=== PATIENT | female | born 1950 | race American Indian/Alaskan Native ===

== ENCOUNTER → 2017-03-19 | Outpatient (CLI) | payer BC ==
--- NOTE | 2017-03-20 08:47 | MM ---
Reason for exam: screening (asymptomatic). Last mammogram was performed 2 years and 3 months ago. History: Patient is postmenopausal. Physical Findings: A clinical breast exam by your physician is recommended on an annual basis and results should be correlated with mammographic findings. MG Screening Mammo w CAD Bilateral CC and MLO view(s) were taken. Prior study comparison: December 15, 2014, bilateral MG screening mammo w CAD. October 26, 2013, bilateral digital screening mammo w/CAD. The breast tissue is heterogeneously dense. This may lower the sensitivity of mammography. Finding: There are typically benign dystrophic, round calcifications in both breasts. There is no discrete abnormality. ASSESSMENT: Benign, BI-RAD 2 RECOMMENDATION: Routine screening mammogram of both breasts in 1 year.
== END | disposition home or self-care (01) ==
LOC: RADMAMWWP 13:55
PROVIDERS: ATTEND Obstetrics & Gynecology
DX: Z12.31 Encounter for screening mammogram for malignant neoplasm of breast (principal)

== ENCOUNTER → 2017-03-25 | Outpatient (CLI) | payer BC ==
[2017-03-25 08:09] LABS: ALT 35 U/L (9-52); AST 25 U/L (14-36); Alkaline Phosphatase 83 U/L (38-126); Anion Gap 11 mmol/L; Blood Urea Nitrogen 12 mg/dL (7-17); Calcium 8.8 mg/dL (8.4-10.2); Carbon Dioxide 24 mmol/L (22-30); Chloride 110 mmol/L (98-107); Cholesterol 169 mg/dL (<200); Glucose 93 mg/dL (74-99); HDL Cholesterol 65 mg/dL (40-60); Non-African American GFR(MDRD) >60 (>60 ml/min/1.73 sqM); Potassium 4.6 mmol/L (3.5-5.1); Sodium 145 mmol/L (137-145); Total Bilirubin 0.4 mg/dL (0.2-1.3); Total Protein 6.9 g/dL (6.3-8.2); Triglycerides 75 mg/dL (<150)
[2017-03-25 08:24] LABS: Basophils % (A) 1 %; CHCM 32.9; Eosinophils # (A) 0.4 k/uL (0-0.7); Eosinophils % (A) 6 %; HCT 43.1 % (34.0-46.0); HDW 2.58; HGB 13.7 gm/dL (11.4-16.0); Luc # (Auto) 0.17; Luc % (Auto) 3; Lymphocytes # (A) 2.5 k/uL (1.0-4.8); Lymphocytes % (A) 39 %; MCH 29.2 pg (25.0-35.0); MCHC 31.8 g/dL (31.0-37.0); MCV 91.8 fL (80.0-100.0); Mean Platelet Volume 7.5; Monocytes # (A) 0.3 k/uL (0-1.0); Monocytes % (A) 5 %; Neutrophils % (A) 47 %; RBC 4.69 m/uL (3.80-5.40); RDW 14.2 % (11.5-15.5); WBC 6.4 k/uL (3.8-10.6); WBC (Perox) 6.46
== END | disposition home or self-care (01) ==
LOC: LABWHC1 06:50
PROVIDERS: ATTEND Internal Medicine Endocrinology, Diabetes & Metabolism
DX: R73.03 Prediabetes (principal)
CPT/HCPCS: 36415; 80053; 80061; 82306; 83036; 84443; 85025

== ENCOUNTER → 2017-04-25 | Outpatient (CLI) | payer BC ==
--- NOTE | 2017-04-25 17:40 | MR ---
EXAMINATION TYPE: MR brain wo/w mraneck wo/wcon, MR angio head wo con DATE OF EXAM: 04/25/2017 5:28 PM COMPARISON: NONE HISTORY: Headaches, double vision CONTRAST: Patient received 20 mL intravenous MultiHance gadolinium contrast. Multiplanar and multispin-echo imaging of the brain was performed . Pre and post contrast enhanced i mages are obtained. The ventricles, basal cisterns and sulci overlying the cerebral convexities are only enlarged. There is evidence of mild periventricular white matter ischemic demyelination. Remote deep white matter insults are also noted. No acute edema is seen on diffusion weighted imaging. There is no evidence for midline shift or mass effect. Acute intracranial hemorrhage or extra-axial collection is not evident. No enhancing lesions are seen. The mastoid air cells are well-aerated. There is moderate ethmoidal sinusitis. Mucous retention cyst right maxillary sinus and mild mucosal t hickening left maxillary sinus as well as an additional small mucous retention cyst. IMPRESSION: 1. Age-related atrophic and chronic small vessel ischemic change. No acute intracranial process at t his time. No enhancing lesions are seen. 2. Chronic sinusitis. EXAMINATION TYPE: MR brain wo/w mraneck wo/wcon, MR angio head wo con DATE OF EXAM: 04/25/2017 5:28 PM COMPARISON: NONE HISTORY: Headaches, double vision Three-dimensional xagm-jo-jfeiuy cervical carotid MRA was performed with multiple intensity projectio n images submitted and source data reviewed at the workstation. Right carotid system: There is no significant plaque seen about the common carotid artery. Minimal pl aque is also seen at the origin and proximal aspect of the right internal carotid artery. No hemody namically significant stenosis is appreciated. Right external carotid artery right vertebral artery are patent. No evidence for dissection. Left carotid system: There is no significant plaque involving the left common carotid artery. Minima l plaque origin left ICA. No hemodynamically significant stenosis is appreciated. External carotid artery and the left vertebral artery are patent. No evidence for dissection. IMPRESSION: 1. No hemodynamically significant stenosis is appreciated at this time. No evidence for dissection. Vertebral arteries are symmetric. EXAMINATION TYPE: MR brain wo/w mraneck wo/wcon, MR angio head wo con DATE OF EXAM: 04/25/2017 5:28 PM COMPARISON: NONE HISTORY: Headaches, double vision Three-dimensional qjhu-fj-rwngal intracranial MRA was performed with multiple intensity projection im ages submitted and source data reviewed at the workstation. The vertebrobasilar system as well as intracranial portions of the internal carotid arteries and thei r major tributaries are patent. I do not see evidence for sizable aneurysm or vascular malformation. IMPRESSION: No significant abnormality appreciated
== END | disposition home or self-care (01) ==
LOC: RADMRIMAIN 15:47
PROVIDERS: ATTEND Psychiatry & Neurology Neurology
DX: G31.9 Degenerative disease of nervous system, unspecified (principal); I67.82 Cerebral ischemia; J32.2 Chronic ethmoidal sinusitis; E78.00 Pure hypercholesterolemia, unspecified; H53.2 Diplopia
CPT/HCPCS: 70544; 70549; 70553; A9577 ×2

== ENCOUNTER → 2019-04-03 | Outpatient (CLI) | payer BC ==
[2019-04-03 08:32] LABS: Basophils # (A) 0.1 k/uL (0-0.2); Basophils % (A) 1 %; Eosinophils # (A) 0.7 k/uL (0-0.7); Eosinophils % (A) 13 %; HCT 43.5 % (34.0-46.0); HGB 13.7 gm/dL (11.4-16.0); Lymphocytes # (A) 1.9 k/uL (1.0-4.8); Lymphocytes % (A) 35 %; MCHC 31.4 g/dL (31.0-37.0); MCV 92.3 fL (80.0-100.0); Mean Platelet Volume 6.5; Monocytes # (A) 0.3 k/uL (0-1.0); Monocytes % (A) 5 %; Neutrophils # (A) 2.3 k/uL (1.3-7.7); Neutrophils % (A) 42 %; Platelet Count 300 k/uL (150-450); RBC 4.72 m/uL (3.80-5.40); RDW 13.2 % (11.5-15.5); WBC 5.5 k/uL (3.8-10.6)
[2019-04-03 18:41] LABS: African American GFR (CKD) 103.9 (60.0-200.0); Albumin 4.3 g/dL (3.80-4.90); Albumin/Globulin Ratio 2.05 (1.60-3.17); Anion Gap 10.6 mmol/L (4.00-12.00); BUN/Creat Ratio 22.86 Ratio (12.00-20.00); Calcium 9.2 mg/dL (8.7-10.3); Carbon Dioxide 24.4 mmol/L (21.6-31.8); Globulin 2.1 g/dL (1.6-3.3); LDL Cholesterol,Calculated 96.8 mg/dL (0.0-131.0); Potassium 4.8 mmol/L (3.5-5.5); Total Bilirubin 0.7 mg/dL (0.2-1.2); Total Protein 6.4 g/dL (6.2-8.2); VLDL Calculation 14.2 mg/dL (5.00-40.00)
[2019-04-03 18:49] LABS: T4, Free (Free Thyroxine) 0.9 ng/dL (0.80-1.80)
[2019-04-03 20:32] LABS: Hemoglobin A1C 6.2 % (4.0-6.0)
== END | disposition home or self-care (01) ==
LOC: LABWHC1 07:46
PROVIDERS: ATTEND Internal Medicine Cardiovascular Disease
DX: E78.5 Hyperlipidemia, unspecified (principal); R06.02 Shortness of breath
CPT/HCPCS: 36415; 80053; 80061; 83036; 84439; 84443; 85025

== ENCOUNTER → 2019-04-03 | Outpatient (CLI) | payer BC ==
--- NOTE | 2019-04-03 09:29 | XR ---
EXAMINATION TYPE: XR chest 2V DATE OF EXAM: 04/03/2019 COMPARISON: NONE HISTORY: Cough and congestion TECHNIQUE: Frontal and lateral views of the chest are obtained. FINDINGS: There is no focal air space opacity, pleural effusion, or pneumothorax seen. The cardiac silhouette size is within normal limits. The osseous structures are intact. IMPRESSION: No acute cardiopulmonary process.
== END | disposition home or self-care (01) ==
LOC: RADXRMAIN 07:58
DX: R05 Cough (principal)
CPT/HCPCS: 71046

== ENCOUNTER 2019-07-01 06:57 | Day surgery (SDC) | payer BC ==
[~2019-07-01 06:57] MED LIST: LACTATED RINGERS 1,000 ML IV SCH; LIDOCAINE 1% 20 ML VIAL (10MG/ML) FOR IV START INTRADERMA PRN
[2019-07-01 07:14] VITALS: RESP 16; TEMP 96.9
[2019-07-01] MEDS ORDERED: LIDOCAINE 1% INJ 10MG/ML (20 ML MDV) ONE (07:36)
[2019-07-01] MEDS ORDERED: PROPOFOL 10 MG/ML 20 ML VIAL IV ONE (07:36)
--- NOTE | 2019-07-01 07:59 | P.PCN ---
Date of Procedure: 07/01/19 Procedure(s) Performed: Brief history: Patient is a pleasant 69-year-old scheduled for an elective upper endoscopy as well as colonoscopy as a part of evaluation of female long standing history of GERD and screening for colorectal neoplasia. Procedure performed: Esophagogastroduodenoscopy with biopsy Colonoscopy Preoperative diagnosis: GERD Screening for colon cancer Anesthesia: MAC Procedure: After informed consent was obtained from the patient was brought into the endoscopy unit and IV sedation was administered by anesthesia under continuous monitoring. Initially upper endoscopy was done. The Olympus GF 160 video endoscope was inserted inserted into the mouth and esophagus intubated without any difficulty and was gradually advanced into the stomach and duodenum and carefully examined. The bulb and second part of the duodenum appeared normal. The scope was then withdrawn into the stomach adequately insufflated with air and upon careful examination the antrum had patchy areas of erythema in the prepyloric area which was biopsied. The body, cardia and fundus appeared normal . The scope was then withdrawn into the esophagus. The GE junction was located at 40 cm to the incisors. It appeared regular with no erythema erosions or ulcerations. Rest of the esophagus appeared normal. Patient tolerated the procedure well. At this time the patient continued to remain sedation. Initial digital rectal examination was normal. Olympus CF 160 video colonoscope was then inserted into the rectum and gradually advanced to the cecum without any difficulty. Careful examination was performed as the scope was gradually being withdrawn. The prep was excellent. The cecum, ascending colon, transverse colon, descending colon, sigmoid colon and rectum appeared normal. Retroflexion was performed in the rectum and no lesions were noted. Patient tolerated the procedure well. Impression: 1. Upper endoscopy revealed mild antral gastritis but no evidence of esophagitis or peptic ulcer disease 2. Colonoscopy was within normal limits with no evidence of colorectal neoplasia Recommendations: Findings of this examination were discussed with the patient as well as her family. She was advised to follow with the biopsy results. Continue with diet modification antireflux measures. She can have a repeat screening colonoscopy in 10 years.
[2019-07-01 08:17] VITALS: BP 118/66; PULSE 62
== END 2019-07-01 09:01 | disposition home or self-care (01) ==
LOC: ORWHC2ENDO 06:57
PROVIDERS: ATTEND Internal Medicine Gastroenterology
DX: Z12.11 Encounter for screening for malignant neoplasm of colon (principal); K29.50 Unspecified chronic gastritis without bleeding; K21.9 Gastro-esophageal reflux disease without esophagitis; E07.9 Disorder of thyroid, unspecified; Z79.890 Hormone replacement therapy; Z79.899 Other long term (current) drug therapy
CPT/HCPCS: 88305; 43239; J2001; J2704; G0121; 45378

== ENCOUNTER → 2020-03-22 | Outpatient (CLI) | payer BC ==
[2020-03-22 11:03] LABS: African American GFR (CKD) >90 (>60 ml/min/1.73 sqM); Blood Urea Nitrogen 18 mg/dL (7-17); Non-African American GFR(CKD) >90 (>60 ml/min/1.73 sqM)
--- NOTE | 2020-03-22 12:17 | CT ---
EXAMINATION TYPE: CT chest w con DATE OF EXAM: 03/22/2020 COMPARISON: Chest x-ray 10/22/2018 HISTORY: Shortness of breath CT DLP: 439 mGycm Automated exposure control for dose reduction was used. CONTRAST: CT scan of the chest is performed with IV Contrast, patient injected with 100 ml mL of Isovue 300. FINDINGS: LUNGS: The lungs are remarkable for nodularity present in the right middle lobe There is no pleural e ffusion or pneumothorax seen. The tracheobronchial tree is patent. Some mild bronchial wall thickeni ng noted. MEDIASTINUM: There are no greater than 1 cm hilar or mediastinal lymph nodes. No pericardial effusi on is seen. AORTA: No additional significant abnormality is seen. For super aortic branch vessels are present. OTHER: 6 cm left cortical cyst is present at the upper pole midpole the left kidney, exophytic anter ior location IMPRESSION: Findings may represent old granulomatous disease, consider bronchitis, reactive airways disease.
== END | disposition home or self-care (01) ==
LOC: RADCTMAIN 10:05
PROVIDERS: ATTEND Internal Medicine Cardiovascular Disease
DX: R06.02 Shortness of breath (principal); Z88.8 Allergy status to other drugs, medicaments and biological substances
CPT/HCPCS: 82565; 84520; 71260; 36415; Q9967

== ENCOUNTER → 2020-05-19 | Outpatient (CLI) | payer BC ==
[2020-05-19 08:07] LABS: Basophils % (A) 1 %; Eosinophils # (A) 0.8 k/uL (0-0.7); Eosinophils % (A) 14 %; HCT 43.9 % (34.0-46.0); HGB 14.1 gm/dL (11.4-16.0); Lymphocytes # (A) 1.7 k/uL (1.0-4.8); Lymphocytes % (A) 33 %; MCH 29.2 pg (25.0-35.0); MCV 91.2 fL (80.0-100.0); Monocytes # (A) 0.3 k/uL (0-1.0); Monocytes % (A) 6 %; Neutrophils # (A) 2.2 k/uL (1.3-7.7); Neutrophils % (A) 42 %; Platelet Count 310 k/uL (150-450); RBC 4.82 m/uL (3.80-5.40); RDW 12.9 % (11.5-15.5); WBC 5.3 k/uL (3.8-10.6)
[2020-05-19 10:50] LABS: African American GFR (CKD) 103.2 (60.0-200.0); Albumin 4.5 g/dL (3.80-4.90); Albumin/Globulin Ratio 2.25 (1.60-3.17); Calcium 9.2 mg/dL (8.7-10.3); Chol/HDL Ratio 2.82; LDL Cholesterol,Calculated 92.2 mg/dL (0.0-131.0); Potassium 4.5 mmol/L (3.5-5.5); Total Bilirubin 0.7 mg/dL (0.2-1.2); Total Protein 6.5 g/dL (6.2-8.2); VLDL Calculation 16.8 mg/dL (5.00-40.00)
[2020-05-19 16:11] LABS: Hemoglobin A1C 6.2 % (4.0-6.0)
== END | disposition home or self-care (01) ==
LOC: LABWHC1 07:24
PROVIDERS: ATTEND Internal Medicine Cardiovascular Disease
DX: R53.83 Other fatigue (principal); E56.9 Vitamin deficiency, unspecified
CPT/HCPCS: 36415; 80053; 80061; 82306; 83036; 84443; 85025

== ENCOUNTER → 2021-02-02 | Outpatient (CLI) | payer BC ==
--- NOTE | 2021-02-02 16:54 | MR ---
EXAMINATION TYPE: MR brain wo con DATE OF EXAM: 02/02/2021 COMPARISON: 10/26/2016 HISTORY: Double vision since 01-31-21, vascular headache. CONTRAST: None TECHNIQUE: Multiplanar, multiecho imaging on a 3.0 Marleny magnet is performed through the brain. Stud y is performed within 24 hours of arrival to the hospital. The craniovertebral junction is normal. The pituitary is normal. Diffusion-weighted imaging is performed. No abnormal hyperintensity is present to suggest an acute i ntracranial infarct or acute ischemic change. There are a few frontal lobe white matter changes greater on the left. These number 6 which is not ou t of proportion to the patient's age. Microvascular ischemic change should be considered. Differentia l diagnosis would include migraine headaches and vasculitis multiple sclerosis and Lyme disease. Ventricles and sulci are appropriate for the patient age. No significant atrophy evident. Orbits and optic nerves appear normal. No abnormal optic chiasm findings. Occipital lobes appear norm al. Note is made of mucosal thickening predominantly within the maxillary sinuses. Polyp or retention cys t may be within the right maxillary sinus. Mucosal thickening is also within ethmoid air cells and mi ldly within the frontal sinuses. No suspicious air-fluid levels are evident. Correlate for chronic si nusitis. IMPRESSIONS: 1. No acute intracranial process. 2. Few scattered frontal lobe white matter hyperintensities, not out of portion to the patient's age. 3. Correlate for chronic sinusitis.
--- NOTE | 2021-02-02 17:39 | MR ---
EXAMINATION TYPE: MR angio neck wo/w con DATE OF EXAM: 02/02/2021 COMPARISON: 04/25/2017 HISTORY: Double vision since 01-31-21, vascular headache. CONTRAST: None TECHNIQUE: Multiplanar multiecho imaging on a 3.0 Marleny magnet is performed through the bilateral car otid bifurcations. 3-D nlke-wk-ywuowq imaging is performed. Source images are reviewed on the compu ter in the axial plane. Reconstructed images rotating on the computer are reviewed. There is some mo tion artifact causing slab obstruction abnormality. FINDINGS: There is a three-vessel arch. Common carotid arteries are patent. Vertebral arteries are codominant. Carotid bifurcations appear normal without flow gaps. No significant narrowing is evident. Internal c arotid arteries extends to the skull base. Vertebral arteries extend to the skull base. IMPRESSIONS: 1. Normal MRA of the neck vessels.
--- NOTE | 2021-02-02 17:43 | MR ---
EXAMINATION TYPE: MR angio head wo con DATE OF EXAM: 02/02/2021 COMPARISON: HISTORY: Double vision since 01-31-21, vascular headache. CONTRAST: None TECHNIQUE: Multiplanar multiecho imaging on a 3.0 Marleny magnet is performed through the deering of Armando lis. 3-D owgy-vg-ogovng imaging is performed. Source images are reviewed on the computer in the axi al plane. Reconstructed images rotating on the computer are reviewed. FINDINGS: The internal carotid arteries bifurcate normally into A1 and M1 segments. The A2 segments are normal. Middle cerebral artery branches are normal. Anterior communicating artery is patent. The right posterior communicating artery is patent. The left posterior communicating artery is patent. Vertebrobasilar arteries within the lhxzu-ji-tboj are normal. Posterior cerebral vasculature is norm al. No suspicious aneurysm or aneurysmal dilatation is evident. No obstructions are identified. No significant flow-limiting stenosis is evident. IMPRESSIONS: 1. NORMAL MRA [facility].
== END | disposition home or self-care (01) ==
LOC: RADMRIMAIN 12:04
PROVIDERS: ATTEND Psychiatry & Neurology Neurology
DX: H53.2 Diplopia (principal); G44.1 Vascular headache, not elsewhere classified; R90.89 Other abnormal findings on diagnostic imaging of central nervous system
CPT/HCPCS: 70544; 70549; 70551; A9585

== ENCOUNTER → 2021-05-03 | Outpatient (CLI) | payer BC ==
[2021-05-03 20:49] LABS: Basophils # (A) 0.06 X 10*3/uL (0.00-0.10); Basophils % (A) 0.8 %; Eosinophils # (A) 0.47 X 10*3/uL (0.04-0.35); Eosinophils % (A) 6.3 %; HCT 41.2 % (37.2-46.3); Lymphocytes % (A) 31.9 %; MCH 29.7 pg (27.0-32.0); MCHC 31.6 g/dL (32.0-37.0); MCV 94.1 fL (80.0-97.0); Mean Platelet Volume 10.3 fL (9.5-12.2); Monocytes # (A) 0.47 X 10*3/uL (0.20-1.00); Monocytes % (A) 6.3 %; Neutrophils % (A) 54.4 %; Platelet Count 380 X 10*3/uL (140-440); RBC 4.38 X 10*6/uL (4.10-5.20); RDW 13.2 % (11.5-14.5); WBC 7.52 X 10*3/uL (4.50-10.00)
[2021-05-04 06:13] LABS: ALT 25 U/L (8-44); AST 25 U/L (13-35); African American GFR (CKD) 102.5 (60.0-200.0); Albumin/Globulin Ratio 1.96 (1.60-3.17); Alkaline Phosphatase 103 U/L (41-126); BUN/Creat Ratio 24.29 Ratio (12.00-20.00); C Reactive Protein <0.4 mg/dL (0.0-0.8); Calcium 10.3 mg/dL (8.7-10.3); Chloride 103 mmol/L (96-109); Globulin 2.5 g/dL (1.6-3.3); Glucose 96 mg/dL (70-110); Non-African American GFR(CKD) 88.4 (60.0-200.0); Potassium 4.9 mmol/L (3.5-5.5); Sodium 140 mmol/L (135-145); Total Bilirubin 0.5 mg/dL (0.3-1.2); Total Protein 7.4 g/dL (6.2-8.2)
== END | disposition home or self-care (01) ==
LOC: LABWHC1 11:23
PROVIDERS: ATTEND Internal Medicine Cardiovascular Disease
DX: R10.9 Unspecified abdominal pain (principal)
CPT/HCPCS: 36415; 80053; 85025; 86140

== ENCOUNTER → 2021-06-27 | Outpatient (CLI) | payer BC ==
[2021-06-27 14:29] LABS: Chol/HDL Ratio 2.52 Ratio; HDL Cholesterol 62.6 mg/dL (40.00-60.00); LDL Cholesterol,Calculated 82.7 mg/dL (0.0-131.0); T4, Free (Free Thyroxine) 1.38 ng/dL (0.800-1.800); Triglycerides 63.3 mg/dL (0.00-149.00); VLDL Calculation 12.66 mg/dL (5.00-40.00)
== END | disposition home or self-care (01) ==
LOC: LABWHC1 07:14
PROVIDERS: ATTEND Internal Medicine Cardiovascular Disease
DX: E78.00 Pure hypercholesterolemia, unspecified (principal); E03.9 Hypothyroidism, unspecified
CPT/HCPCS: 36415; 80061; 82306; 83036; 84439; 84443

== ENCOUNTER → 2024-04-30 | Outpatient (CLI) | payer MEDICARE ==
[2024-04-30 11:09] LABS: HCT 43.7 % (37.2-46.3); HGB 13.8 g/dL (12.0-15.0); MCH 28.2 pg (27.0-32.0); MCHC 31.6 g/dL (32.0-37.0); MCV 89.2 FL (80.0-97.0); Mean Platelet Volume 10.1 FL (9.5-12.2); NRBC Per 100 WBC 0 X 10*3/uL (0.00-0.01); Platelet Count 327 X 10*3/uL (140-440); RDW 16.3 % (11.5-14.5); WBC 7.76 X 10*3/uL (4.50-10.00)
[2024-04-30 11:31] LABS: ALT 23 U/L (8-44); AST 24 U/L (13-35); Albumin 4.3 g/dL (3.8-4.9); Albumin/Globulin Ratio 1.34 Ratio (1.60-3.17); Alkaline Phosphatase 105 U/L (41-126); BUN/Creat Ratio 17.57 Ratio (12.00-20.00); Blood Urea Nitrogen 12.3 mg/dL (9.0-27.0); C Reactive Protein <0.30 mg/dL (0.00-0.80); Calcium 9.4 mg/dL (8.7-10.3); Carbon Dioxide 26.9 mmol/L (21.6-31.8); Chloride 107 mmol/L (96-109); Chol/HDL Ratio 2.31 Ratio; Globulin 3.2 g/dL (1.6-3.3); Glucose 95 mg/dL (70-110); Iron 73 UG/DL (50-170); LDL Cholesterol,Calculated 62.6 mg/dL (0.0-131.0); Magnesium 2.2 mg/dL (1.5-2.4); Potassium 4.9 mmol/L (3.5-5.5); Sodium 142 mmol/L (135-145); Total Bilirubin 0.9 mg/dL (0.3-1.2); Total Iron Binding Capacity 351 UG/DL (228-460); Total Protein 7.5 g/dL (6.2-8.2); VLDL Calculation 15.04 mg/dL (5.00-40.00)
[2024-04-30 11:32] LABS: Ferritin 63.9 ng/mL (10.0-291.0)
[2024-04-30 11:59] LABS: Basophils # (A) 0.05 X 10*3/uL (0.00-0.10); Basophils % (A) 0.6 %; Eosinophils # (A) 0.59 X 10*3/uL (0.04-0.35); Eosinophils % (A) 7.6 %; Lymphocytes # (A) 2.33 X 10*3/uL (0.90-5.00); Monocytes # (A) 0.42 X 10*3/uL (0.20-1.00); Monocytes % (A) 5.4 %; Neutrophils # (A) 4.35 X 10*3/uL (1.80-7.70); Neutrophils % (A) 56.1 %; RBC Morphology Normal (Normal)
[2024-04-30 12:14] LABS: Erythrocyte Sedimentation Rate 5 mm/Hr (0-30)
[2024-04-30 12:49] LABS: Appearance,Urine Clear (Clear); Bilirubin,Urine Negative (Negative); Blood,Urine Negative (Negative); Color,Urine Yellow (Yellow); Ketones,Urine Trace (Negative); Nitrite,Urine Negative (Negative); PH, Urine 6.5; Specific Gravity,Urine 1.014 (1.001-1.030); Urobilinogen,Urine 0.2 E.U./DL
== END | disposition home or self-care (01) ==
LOC: LABWHC1 07:10 → EDSTATUS 07:14
PROVIDERS: ATTEND Internal Medicine
DX: E78.2 Mixed hyperlipidemia
CPT/HCPCS: 36415; 80053; 80061; 81003; 82306; 82728; 83036; 83540; 83550; 83735; 83993; 84443; 85025; 85652; 86140